=== PATIENT | female | born 1980 | race Caucasian/White ===

== ENCOUNTER → 2020-12-14 09:48 | Outpatient (CLI) | payer OTHER ==
[2013-09-12 06:13] VITALS: BMI 19.9
[~2020-12-14 09:48] MED LIST: FLEXERIL10 MG PO; MINASTRIN 24 FE; NEXIUM40 MG PO; NORCO 10/325 TA1 TA1 PO; SUPER B COMPLE150 MG PO; WELLBUTRIN SR150 MG PO; ZANTAC150 MG PO
== END | disposition home or self-care (01) ==
LOC: D.US 09:48
PROVIDERS: ATTEND Family Medicine
DX: E04.0 Nontoxic diffuse goiter (principal)